=== PATIENT | male | born 1955 | race Caucasian/White ===

== ENCOUNTER → 2019-03-29 | Outpatient (CLI) | payer BC ==
[2015-05-24 18:13] VITALS: BP 126/93
--- NOTE | 2019-03-29 17:01 | RAD ---
CT CERVICAL SPINE WO CONTRAST Indication: Neck pain. Exposure: One or more of the following individualized dose reduction techniques were utilized for this examination: 1. Automated exposure control 2. Adjustment of the mA and/or kV according to patient size 3. Use of iterative reconstruction technique. Technique: Standard imaging without intravenous contrast. Comparison: None are available. FINDINGS: There has been fusion at C5-C6 with intervertebral graft and anterior plate and screws. Multilevel degenerative spondylosis. Large anterior osteophytes are identified at C4-C5, encroaching upon the prevertebral soft tissues and may result in some narrowing of the airway. Moderate anterior osteophytes at C7-T1. Smaller posterior osteophytes are identified. Mild facet joint degenerative change. Findings result in mild multilevel spinal canal narrowing. Neural foraminal narrowing at C5-C6, moderate on the left and mild on the right. Vertebral body height is maintained. No evidence of acute fracture. No aggressive bone destruction. No evidence of perched or locked facet joint. No evidence of significant subluxation. Mildly elongated styloid processes bilaterally, measuring about 3 cm. Prevertebral soft tissues demonstrate no evidence of abnormal hematoma or intrinsic swelling. Thyroid appears grossly unremarkable. Lung apices appear clear. Study is not protocoled for intracranial technique but no obvious mass effect or midline shift at the visualized lower brain structures. IMPRESSION: 1. Degenerative spondylosis and facet joint disease, with mild multilevel spinal canal narrowing. 2. Surgical fusion at C5-C6, with bilateral neural foraminal stenosis. 3. Large anterior osteophytes at C4-C5, impinge upon the prevertebral soft tissues and appear to result in some effacement of the airway. 4. Borderline elongated styloid processes bilaterally, can occasionally be symptomatic ([place] syndrome). Electronically signed by: Marcelo Ecsobar MD (03/29/2019 4:58 PM) [id number]
== END | disposition home or self-care (01) ==
LOC: CT 14:09
PROVIDERS: ATTEND Family Medicine
DX: M48.02 Spinal stenosis, cervical region (principal); M25.78 Osteophyte, vertebrae; M47.812 Spondylosis without myelopathy or radiculopathy, cervical region
CPT/HCPCS: 72125